=== PATIENT | male | born 1960 | race Two or more races ===

== ENCOUNTER 2019-01-21 10:01 | Day surgery (SDC) | payer OTHER ==
[2019-01-18 17:27] VITALS: BMI 22.9
[2019-01-21] MEDS ORDERED: oxyCODONE HCL 5 MG TABLET PO PRN ×2 (12:21)
[2019-01-21] MEDS ORDERED: ONDANSETRON 4 MG/2 ML VIAL IVPUSH PRN (12:21)
[2019-01-21] MEDS ORDERED: LACTATED RINGERS SOLUTION 1,000 ML IV SCH (12:30)
[2019-01-21] MEDS ORDERED: ACETAMINOPHEN 1000 MG/100 ML VIAL (NON FORMULARY) IVPB ONE ×2 (12:45→15:31)
[2019-01-21] MEDS ORDERED: fentaNYL CITRATE 250 MCG/5 ML VIAL ONE (12:50)
[2019-01-21] MEDS ORDERED: SUCCINYLCHOLINE CHLORIDE 200 MG/10 ML VIAL ONE (12:50)
[2019-01-21] MEDS ORDERED: PROPOFOL 20 ML ONE ×2 (12:50)
[2019-01-21] MEDS ORDERED: MIDAZOLAM HCL 2 MG/2 ML SINGLE DOSE VIAL ONE (12:51)
[2019-01-21] MEDS ORDERED: BUPIVACAINE HCL/PF 0.5% (5MG/ML) 10 ML VIAL ONE (12:56)
[2019-01-21] MEDS ORDERED: ceFAZolin SODIUM 1 GM VIAL IVPB ONE (13:07)
[2019-01-21] MEDS ORDERED: ceFAZolin SODIUM 1 GM VIAL ONE (13:13)
[2019-01-21] MEDS ORDERED: DEXAMETHASONE SOD PHOSPHATE 4 MG/1 ML VIAL ONE (13:13)
[2019-01-21] MEDS ORDERED: BUPIVACAINE HCL/PF (5 MG/ML) 30 ML VIAL IJ ONE (13:34)
[2019-01-21] MEDS ORDERED: BACITRACIN 15 GM TUBE TOPICAL OINTMENT TP ONE (14:27)
[2019-01-21] MEDS ORDERED: ACETAMINOPHEN INJECTION 100 ML IVPB ONE (15:29)
--- NOTE | 2019-01-21 16:08 | OP ---
Operative Note - Note: Operative Date: 01/21/19 Pre-Operative Diagnosis: peyronie's disease Operation: penile plication Findings: penile curve about 30 degrees Post-Operative Diagnosis: Same as Pre-op Surgeon: Floyd Grimm Anesthesia: General
[2019-01-21 17:15] VITALS: BP 120/70; PULSE 71; TEMP 97.8
--- NOTE | 2019-01-21 22:01 | OP ---
DATE OF OPERATION: 01/21/2019 PREOPERATIVE DIAGNOSIS: Peyronie disease. POSTOPERATIVE DIAGNOSIS: Peyronie disease. PROCEDURE: Penile plication. ATTENDING: Floyd Raza MD ANESTHESIA: General. Patient brought in the operating room, placed in supine position on the operating room table. The patient was given preoperative antibiotics and anesthesia. The patient has a history of Peyronie disease who failed Xiaflex. The patient continued with a penile curve of roughly 30 degrees. The patient understands all risks and benefits of the procedure. The patient was prepped and draped in the usual sterile manner. At this point, the penis is degloved. A Mcclain catheter is placed in the penis to help identify the urethra. A subcoronal incision is made circumferentially and the penile skin and subcutaneous tissue is brought down to the base of the penis. The penile plaque is identified. At this point, a Mei drain is placed at the base of the penis and clamped with protection of the urethra with gauze. An intracavernosal injection with normal saline was given in order to form an erection. The curve is noted. Plicating stitches on the opposite side of the curve are placed; 2-0 Prolene stitches are placed in [address] in order to plicate the penis appropriately. The patient was forewarned that there may be shortening of the penis. The plication straightened out the penis to a normal phallus. No complications were noted. A 2-layer closure was then performed using 3-0 and 4-0 chromic stitches. Local anesthesia was given at the end of the procedure. DISPOSITION: To the recovery room. No complications were noted. Kofi [id number]
== END 2019-01-21 17:20 | disposition home or self-care (01) ==
LOC: JASU-SURG 10:01
PROVIDERS: ATTEND Urology
PROC: 0VXT0ZS Transfer Prepuce to Penis, Open Approach (ICD-10-PCS; principal; 2019-01-21 13:00)
DX: N48.6 Induration penis plastica (principal)
CPT/HCPCS: 82962; 94760; J0131